=== PATIENT | male | born 1935 | race Caucasian/White ===

== ENCOUNTER → 2019-02-10 14:15 | Outpatient (CLI) | payer MEDICARE, SELFPAY ==
--- NOTE | 2019-02-10 14:15 | LES_PTH ---
PATIENT: DERRICK VIZCARRA LOC: [facility] U#:[id number] AGE/SX: 89/M ROOM: RE02/10/[address]: Dr. Hero Amaral MD : 1935 BED: DIS: SPEC #: [id number] RECD: 02/10/19 17:29 STATUS: LYDIA INESSA #: [id number] STEFANI: 02/10/19 14:[address]: Hero Amaral DEPT: SURGICAL PATHOLOGY RECD BY: Eduin Molina Tissues: Tongue, NOS Procedures: PAS Fungus (control) Special Stain Group I Surgery Specimen Level IV HEADER OPERATION: Right tongue lesion biopsy PRE-OP DIAGNOSIS: Lesion of tongue TISSUE SUBMITTED: Right tongue lesion MICROSCOPIC DIAGNOSIS Right tongue lesion, biopsy: A piece of squamous mucosa with focal ulceration, acute inflammation and granulation tissue reaction. Special stain for fungi is negative for organisms; matched control is appropriate. Negative for malignancy. See comment. SJ:ranjit 02/12/19 COMMENT Correlation with clinical findings and appropriate follow up are necessary. Case has been reviewed in consultation with Dr. Condon who concurs with the above diagnosis. IDC:AM MICROSCOPIC DESCRIPTION Slides are reviewed. GROSS DESCRIPTION Received in fixative is one container labeled with the patient's name and designated right tongue lesion. The specimen consists of a piece of wadsworth mucosal tissue measuring 0.5 x 0.4 x 0.3 cm. The specimen is totally submitted in one cassette. / CATHERINE:ranjit 02/11/19 TC:2 CPT: 17591, 67786
== END ==
PROVIDERS: Family Provider Otolaryngology; PCP Otolaryngology; Visit Provider Otolaryngology
DX: K13.70 Unspecified lesions of oral mucosa (principal)
CPT/HCPCS: 88305; 88312

== ENCOUNTER 2019-03-07 14:06 | Inpatient (IN) | payer MEDICARE, SELFPAY ==
[2019-03-07] VITALS (16 sets, daily range): BP systolic 104–155; BP diastolic 50–89; PULSE 62–91; RESP 16–18; TEMP 36.4–37.3; O2SAT 92–100; BMI 39.2
--- NOTE | 2019-03-07 | LES_PTH ---
PATIENT: DERRICK VIZCARRA LOC: [facility] U#:[id number] AGE/SX: 83/M ROOM: OR313 RE03/07/[address]: Dr. Hreo Amaral MD : 1935 BED: 1 DIS: 03/09/2019 SPEC #: [id number] RECD: 03/07/19 09:23 STATUS: LYDIA REQ #: [id number] STEFANI: 03/07/19 00:[address]: Hero Amaral DEPT: SURGICAL PATHOLOGY RECD BY: Claudette Noe ENTERED: 03/07/19 10:30 SP TYPE: Lesion OTHR DR: Dr. Jayden Villanueva MD Tissues: A - Tongue, NOS B - Neck, NOS Procedures: Frozen Section (charge) Surgery Specimen Level IV Surgery Specimen Level V HEADER OPERATION: Radical neck excision right lateral tongue lesion PRE-OP DIAGNOSIS: Lesion of tongue, cervical lymphadenopathy TISSUE SUBMITTED: A - Right lateral tongue lesion, double stitch - anterior, single suture - superior, sent for FS at 0916, B - Right supraomohyoid neck dissection tissue FROZEN SECTION DIAGNOSIS A. Right lateral tongue lesion, excisional biopsy: Invasive squamous cell carcinoma, completely excised in the sections examined. SJ:ranjit 03/07/19 Case has been reviewed in consultation with Dr. Condon who concurs with the above diagnosis. IDC:AM MICROSCOPIC DIAGNOSIS A. Right lateral tongue lesion, excisional biopsy: Invasive moderately differentiated squamous cell carcinoma. See cancer checklist below. B. Right supraomohyoid neck dissection including submandibular gland, excision: Salivary gland tissue with mild chronic inflammation. Three out of six lymph nodes positive for metastatic squamous cell carcinoma. AM:ranjit 03/11/19 COMMENT LIP AND ORAL CAVITY CANCER CHECKLIST Procedure: Excision of tongue lesion Tumor site: Right lateral tongue Tumor laterality: Right Tumor focality: Unifocal Greatest dimension: 2 cm Additional dimensions: 1.7 cm Tumor depth of invasion: 7 mm Histologic type: Squamous cell carcinoma Histologic grade: G2 (moderately differentiated) Margins: Uninvolved by invasive carcinoma. Distance from closest inferior margin: 3 mm Tumor bed: Uninvolved by invasive carcinoma. Lymphvascular invasion: Not identified Perineural invasion: Focally present Regional lymph nodes: Number of lymph nodes involved: 3 Total number of lymph nodes examined: 6 See specimen B Laterality of lymph nodes involved: Ipsilateral Size of largest metastatic deposit: 0.7 cm Extranodal extension: Not identified PATHOLOGIC STAGE: pT2 N2b Mx The above summary is in compliance with [employer] [place] (CAP) Cancer Protocols Checklist and [place] [employer] Committee on Cancer (AJCC), Staging Manual, 8th Ed. Immunohistochemistry ([id number]) supports the above diagnosis. Case has been reviewed in consultation with Dr. Nichols who concurs with the above diagnosis. IDC:SJ MICROSCOPIC DESCRIPTION Slides are reviewed. GROSS DESCRIPTION A - Received fresh for frozen section diagnosis labeled with the patient's name is a specimen designated right lateral tongue lesion. The specimen consists of a piece of mucosal tissue with underlying skeletal muscle tissue (portion of tongue) measuring 5 x 3 cm and up to 1.5 cm in thickness. The specimen is oriented as follows: double stitch - anterior, single suture - superior. The specimen is inked as follows: superior - blue, inferior - green, anterior tip - yellow, posterior tip - black and deep margin - red. The surface shows extensive area of ulceration measuring 2 x 1.5 cm. The entire specimen is submitted as follows: 1-5 - frozen section (1 - anterior and posterior tips, 2 & 3 - tumor with closest superior and inferior margins, 4 & 5 - tumor with closest inferior margin), 6-11 - rest of the specimen. / CATHERINE:ranjit 03/07/19 B - Received in fixative is one container labeled with the patient's name and designated right supraomohyoid neck dissection tissue. The specimen consists of a piece of wadsworth-pink soft tissue unoriented and measuring 11.5 x 7 x 2 cm. The specimen is not oriented. Two sutures are noted without identification. More dictation will follow later. / SJ:ranjit 03/07/19 The specimen consists of a piece of wadsworth-pink soft tissue measuring 12 x 8 x 2 cm. The specimen is not oriented. Two sutures are noted at one edge of specimen. A nodular piece of tissue consistent with salivary gland tissue measures 3 x 1.5 x 2 cm. Multiple lymph nodes are identified measuring 0.5 to 1 cm in greatest dimension. [employer] sections are submitted in nine cassettes as follows: 1-4 - entire salivary gland tissue, 5 & 6 - each cassette containing multiple lymph nodes, 7-9 - possible lymph nodes. The specimen is fixed in lymph node revealing solution for a second look. / SJ:ranjit 03/07/19 TC:0 CPT: 39245, 45105, 00561
--- NOTE | 2019-03-07 | IMM_PTH ---
PATIENT: DERRICK VIZCARRA LOC: [facility] U#:[id number] AGE/SX: 83/M ROOM: MS313 RE03/07/[address]: Dr. Hero Amaral MD : 1935 BED: 1 DIS: 03/09/2019 SPEC #: [id number] RECD: 03/10/19 12:37 STATUS: SOUT REQ #: [id number] STEFANI: 03/07/19 00:[address]: Hero Amaral DEPT: IMMUNOHISTOCHEMISTRY RECD BY: Claudette Noe ENTERED: 03/10/19 12:38 SP TYPE: IMMUNO OTHR DR: Dr. Jayden Villanueva MD Tissues: A - Tongue, NOS Procedures: CD31 (initial) CK14 (add) CK5-6 (add) KI-67 (add) P16 (add) P53 (add) FACTOR VIII (add) P40 (add) PHYSICIAN & INSTITUTION [place] [id number] SPECIMEN INFORMATION: Tissue Source: A - Right lateral tongue lesion Clinical Info: Tongue lesion; cervical lymphadenopathy Specimen Number: [id number] A2 CPT code: 71112, 64271 x8 METHODOLOGY: Deparaffinized sections of prefer/formalin-fixed tissue or PAP/DQ stained slides are incubated with monoclonal/polyclonal antibodies/oligonucleotide probes. Localization is made via biotin free immunoperoxidase method. Appropriate controls are performed and reacted as expected. Results on target cell population are indicated in the following table: RESULTS: ANTIBODY / CLONE RESULT Block A2 CD31 (JAYCE/70A) negative Factor VIII (R Ag) negative S-100 (4C4.9) negative CK5-6 (D5 & 1684) positive CK14 (LL002) positive P40 (BC28) positive P16 (E6H4) negative P53 (DO-7) positive Ki-67 (30-9) positive, moderate These tests were developed and their performance characteristics determined by [facility]. They may not have been cleared or approved by the U.S. Food and Drug Administration. The FDA has determined that such clearance or approval is not necessary. The above immunohistochemical/dualISH markers are ordered and reviewed by the Pathologist. INTERPRETATION: A. Right lateral tongue lesion, excisional biopsy: Invasive squamous cell carcinoma. Focal perineural invasion by carcinoma. No evidence of vascular invasion. AM:ranjit 03/11/19
--- NOTE | 2019-03-07 06:38 | EKG12_ITS ---
Test Reason : PRE-OP Blood Pressure : / mmHG Vent. Rate : 063 BPM Atrial Rate : 063 BPM P-R Int : 170 ms QRS Dur : 140 ms QT Int : 434 ms P-R-T Axes : 046 -06 153 degrees QTc Int : 444 ms Normal sinus rhythm Left bundle branch block Abnormal ECG Confirmed by JEFFERSON WATTS, JAH ([id number]), video news editor KARSON JOSEPH ([id number]) on 03/10/2019 10:39:04 AM Referred By: Hero Amaral Confirmed By:JAH PAULINO MD
[2019-03-07 07:05] LABS: Bedside Glucose 122 mg/dL (70-110)
[2019-03-07 07:09] LABS: Hematocrit 51.3 % (40-54); Hemoglobin 16.7 g/dL (13.0-16.5); Mean Corp Hgb Conc 32.6 g/dL (32-36); Mean Corpuscular Hgb 30.9 pg (27.0-32.0); Mean Corpuscular Volume 94.8 fL (80-94); Platelet Count 255 K/mm3 (150-450); RBC Distribution Width CV 13.2 % (11.6-14.6); RBC Distribution Width SD 46.1 fl (35.1-43.9); Red Blood Count 5.41 M/mm3 (4.6-6.2); White Blood Count 7.2 K/mm3 (4.4-11.0)
[2019-03-07] MEDS: Lactated Ringers 1,000 ML 100 ML IV ×2 (07:24→17:34)
[2019-03-07 07:32] LABS: Anion Gap 6 (5-15); BUN 16 mg/dL (7-18); Calcium,Total 9.6 mg/dL (8.5-10.1); Chloride 107 mmol/L (98-107); EST Glomerular Filtration Rate 76 mL/min (>60); Est Glom Filt Rate - Afr Amer 92 mL/min (>60); Estimated Creatinine Clearance 46.87 ml/min; Glucose 118 mg/dL (74-106); Hemoglobin A1c 6.5 % (4.2-6.3); Potassium 4.1 mmol/L (3.5-5.1); Sodium Level 141 mmol/L (136-145)
[2019-03-07] MEDS: Bacitracin 500 UNITS/GM PACKET (12:39)
--- NOTE | 2019-03-07 12:55 | OP.PCM_ITS ---
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 Office biopsy suggested a benign etiology however the appearance was highly suspicious and preoperative CT scan showed some questionable adenopathy of the right neck and the above procedure for definitive evaluation and treatment was advised and the family and patient were eager to proceed. The risks, alternatives, potential complications, and benefits were discussed at length and any questions answered to the patient and/or caregiver's satisfaction. Witnessed informed consent was obtained in the office, and the patient and/or caregiver was agreeable to proceed. Procedure went as follows: The patient was identified in the preoperative holding and brought to the operating room where he was placed under general anesthesia and intubated. When appropriate anesthesia obtained a lip retractor and dental guard was placed into the mouth to allow for visualization of the tongue. Arising from the right lateral aspect was a 3 x 4 cm firm fungating lesion with a rolled border sparing the anterior tip. This was then injected with 1% lidocaine with 1-100,000 epinephrine and after allowing for vasoconstriction using monopolar cautery the lesion was then excised with a cuff of surrounding normal tissue extending into the deep musculature of the tongue. Arterial supplies were individually clamped and ligated with 3-0 silk sutures. The lesion was then split sent for pathologic evaluation which revealed an inv asive squamous cell carcinoma with negative resection margins. Given confirmation of malignancy a right selective supraomohyoid neck dissection was then elected as had been discussed preoperatively. Fresh draping and preparation of the neck was then performed and the planned skin incision marked 3 fingerbreadths below the angle of the mandible and extending 1 cm across the midline. This was then injected with 1% lidocaine with 1-100,000 epinephrine for a total of 7 mL. After allowing for vasoconstriction, a 15 blade scalpel was then used to incise the skin subcutaneous tissue and platysma. Using monopolar cautery subplatysmal flaps were then elevated superiorly to the angle of the mandible and inferiorly to the clavicle. Dissection was then carried out where the marginal mandibular nerve was identified and preserved and draped superiorly. Dissection was then carried out along the lateral aspect of the sternocleidomastoid and then the overlying fascia dissected from the overlying muscle. The vascular sheath was then identified and removed from the jugular and carotid. The side branches of the jugular vein were then individually clamped and ligated with 3-0 silk sutures. Working superiorly and enlarged jugulodigastric lymph node was identified and included in the resection specimen. The submandibular gland was then incised along its surrounding fascia and drawn inferiorly after transecting the facial vein. The facial artery side branches were individually clamped and ligated with 3-0 silk sutures and this was then preserved and left in situ. Dissection was then carried out along the midline under the mylohyoid and along the anterior belly of the digastric. The submandibular duct was then transected and the nervous attachments of the glossopharyngeal nerve and ganglion were then freed from their attachments and the vascular components ligated with sutures. This allowed the dissection to then be developed inferiorly to the omohyoid and medially over the larynx and thyroid. Dissection was then carried out across the midline to include the submental fatty lymph node packet which was then resected in continuity with the main specimen. This was then sent for pathologic evaluation. The wound was then copiously irrigated with saline solution and a #7 flat drain placed and brought out through a separate stab incision. This was then secured with a 3-0 silk suture. The platysma was then reapproximated with interrupted 3-0 Vicryl sutures as were the subcutaneous tissues. Finally a running 5-0 Monocryl suture was then placed to close the skin. Bacitracin ointment was then applied. Type of Anesthesia:: General Anesthesiologist: Freeman Bonilla Special Medications: none Specimen's removed: right tongue lesion, right neck dissection levels 6, 3 and 4 Drains: #7 flat HU Estimated Blood Loss (mL): 10 mL Fluids Replaced: 1800 mL Grafts/Implants Used: none - Complications none - Admit VTE Documentation VTE Present on Admission: No VTE Mechan Device Prophylaxis: SCD's VTE Pharm Prophylaxis ordered?: No
--- NOTE | 2019-03-07 13:09 | DCINST_ITS ---
- Discharge Diagnoses Current Active Problems: Current Active and Chronic Problems Squamous cell carcinoma of lateral tongue (Chronic) You will use the following diet at home:: No restrictions Discharge Activity: Return to Normal Activity, May not drive while taking narcotic pain medications. May shower in (days): 2 Weight Bearing Status: Weight bearing as tolerated Call your doctor if your incision/area has: Sudden Increased Bleeding, Increased Pain/ Swelling, Increased Redness, Swelling at the incision site Call your doctor if you observe: Fever of 101 or Higher, Uncontrolled pain Allergies/Adverse Reactions: Allergies No Known Allergies Allergy (Verified 03/07/19 06:52) Medications to take at Discharge Aspirin [Aspir 81] 81 mg PO DAILY 03/04/19 Atorvastatin Calcium [Lipitor] 20 mg PO QHS 03/04/19 Glimepiride [Amaryl] 1 mg PO DAILY 03/04/19 Levothyroxine [Synthroid] 50 mcg PO DAILY 03/04/19 Lisinopril [Zestril] 20 mg PO DAILY 03/04/19 Metoprolol(XL)Succ [Toprol Xl (Beta Jeffy)] 50 mg PO BID 03/04/19 Multivitamin with Minerals [Multiple Vitamin] 1 ea PO DAILY 03/04/19 Omeprazole Magnesium [Prilosec Otc] 20 mg PO PRN PRN 03/04/19 Primary Care Physician: Jayden Villanueva MD [Primary Care Provider] - Test Results: Test results from this visit will be discussed in further detail at your follow- up appointment, if applicable. Please Follow Up With: Hero Amaral MD When: 2 weeks
[2019-03-07 13:51] LABS: Bedside Glucose 117 mg/dL (70-110)
[2019-03-07 17:45] LABS: Bedside Glucose 94 mg/dL (70-110)
[2019-03-07 22:25] LABS: Bedside Glucose 116 mg/dL (70-110)
[2019-03-07] MEDS: Metoprolol(XL)Succ 50 MG Tablet PO (22:26)
[2019-03-07] MEDS: Atorvastatin Calcium 20 MG Tablet PO (22:26)
[2019-03-08] VITALS (14 sets, daily range): BP systolic 112–145; BP diastolic 57–81; PULSE 72–97; RESP 16–18; TEMP 36.4–37.4; O2SAT 91–97
[2019-03-08] MEDS: Levothyroxine 50 MCG Tablet PO (03:52)
[2019-03-08 06:50] LABS: Bedside Glucose 121 mg/dL (70-110)
[2019-03-08] MEDS: Glimepiride 1 MG Tablet PO (08:00)
[2019-03-08] MEDS: Aspirin E.C. 81 MG Tablet PO (08:00)
--- NOTE | 2019-03-08 08:59 | PN.SURG_ITS ---
Subjective: The patient reports he is feeling well with his incisional site pain at the tongue controlled with the Tylenol with codeine liquid. He denies any chest pain, cough, constipation, abdominal discomfort, or leg pain or swelling. He reports that he has been out of bed and walking and has continued to improve overnight. Objective: Patient appears well at the bedside. The tongue incision is intact without bleeding or significant swelling or edema of the tongue. The neck incision site is nicely closed without fluid collection or erythema. Drain output was 40 mL last shift and there is about 20 mL in the bulb currently. He is at 1 L of oxygen nasal cannula at 93% oxygen saturation. - Physical Exam Vitals/I&O's: Vital Signs Temp Pulse Resp BP Pulse Ox 98.8 F 81 16 112/62 95 03/08/19 07:32 03/08/19 07:32 03/08/19 07:32 03/08/19 07:32 03/08/19 07:32 Oxygen Flow Rate (L/min) 2 Oxygen Delivery Method Room Air Weight: 103.5 kg Body Mass Index (BMI) 39.2 Finger Stick Blood Glucose 117 Intake and Output for Last 24 Hours 03/06/19 03/07/19 03/08/19 23:59 23:59 23:59 Intake Total 1000 / 1250 1350 / 1350 Output Total 600 / 630 70 / 70 Balance 400 / 620 1280 / 1280 General: Alert, Oriented x3, Cooperative, No apparent distress HEENT: Atraumatic, PERRLA Oral: Moist Mucosa Neck: Supple Lungs: No rhonchi, No wheeze Cardiovascular: Regular rate, Regular Rhythm Abdomen: Soft, Non Tender, Obese Extremities: No cyanosis, No edema Skin: No rashes Psych/Mental Status: Alert and oriented to time, place, person, mood and affect Laboratory Results 03/07/19 13:44: POC Glucose 117 H 03/07/19 17:30: POC Glucose 94 03/07/19 22:10: POC Glucose 116 H 03/08/19 06:35: POC Glucose 121 H Current Medications Acetaminophen (Tylenol) 500 mg PO Q4H PRN PRN PRN Reason: Pain Score 1-5/10 Acetaminophen/Codeine Phosphate (Tylenol W/Cod Liq 300-30mg/12.5ml) 15 ml PO Q4H PRN PRN PRN Reason: Pain Score 6-10/10 Last Admin: 03/08/19 07:49 Dose: 15 ml Documented by: Aspirin (Ecotrin) 81 mg PO DAILY@0800 [facility] Last Admin: 03/08/19 08:00 Dose: 81 mg Documented by: Atorvastatin Calcium (Lipitor) 20 mg PO QHS [facility] Last Admin: 03/07/19 22:26 Dose: 20 mg Documented by: Glimepiride (Amaryl) 1 mg PO DAILY@0800 [facility] Last Admin: 03/08/19 08:00 Dose: 1 mg Documented by: Lactated Ringer's () 1,000 mls @ 100 mls/hr IV .Q10H [facility] Last Admin: 03/08/19 03:53 Dose: Not Given Documented by: Sodium Chloride () 250 mls @ 15 mls/hr IV .[id number] PRN PRN Reason: Saline Flush Sodium Chloride () 250 mls @ 15 mls/hr IV .[id number] PRN PRN Reason: Additional IVPB Infusion Levothyroxine Sodium (Synthroid) 50 mcg PO DAILY@0600 [facility] Last Admin: 03/08/19 03:52 Dose: 50 mcg Documented by: Lisinopril (Zestril) 20 mg PO DAILY [facility] Metoprolol Succinate (Toprol Xl (Beta Jeffy)) 50 mg PO BID [facility] Last Admin: 03/07/19 22:26 Dose: 50 mg Documented by: Multivitamins/Minerals (Multivitamin With Minerals) 1 tablet PO DAILY@1200 [facility] Ondansetron HCl (Zofran) 4 mg IV Q4H PRN PRN PRN Reason: Nausea Pantoprazole Sodium (Protonix) 20 mg PO DAILY PRN PRN PRN Reason: indigestion Sodium Chloride () 10 - 40 ml IV UD PRN PRN Reason: SALINE FLUSH Medical Necessity - Tobacco Use Smoking Status: Former smoker Tobacco Use: Non-smoker Assessment/Plan The patient is doing well postoperative day #1 status post resection of squamous cell carcinoma of the right lateral tongue and right supraomohyoid neck dissection. He is required some oxygen supplementation overnight and institution of incentive spirometry for improved ventilation is instituted. He otherwise has satisfactory pain control and no evidence of infection or excess bleeding at the wound sites. His drain continues with some elevated output and given his oxygen requirement I have advised that he stay for continued monitoring for ongoing improvement and he is agreeable. I am hopeful that with improved oxygenation and ongoing decrease in his drain output that discharge may be possible for tomorrow as otherwise his vital signs are very good and he appears to have gone through his surgical encounter without significant incident.
[2019-03-08] MEDS: Lisinopril 20 MG Tablet PO (09:59)
[2019-03-08] MEDS: Metoprolol(XL)Succ 50 MG Tablet PO ×2 (09:59→23:29)
[2019-03-08] MEDS: Multivitamins,Ther W-Minerals Tablet 1 TABLET PO (12:53)
[2019-03-08] MEDS: Atorvastatin Calcium 20 MG Tablet PO (23:29)
[2019-03-08 23:51] LABS: Bedside Glucose 94 mg/dL (70-110)
[2019-03-09 02:00] VITALS: BP 142/77; PULSE 75; PULSE 85; RESP 18; TEMP 37.3; O2SAT 94
[2019-03-09] MEDS: Levothyroxine 50 MCG Tablet PO (05:03)
[2019-03-09 06:04] VITALS: PULSE 75
[2019-03-09 07:10] LABS: Bedside Glucose 104 mg/dL (70-110)
[2019-03-09 07:24] VITALS: BP 120/55; PULSE 70; RESP 16; TEMP 36.6; O2SAT 95
[2019-03-09] MEDS: Aspirin E.C. 81 MG Tablet PO (07:44)
[2019-03-09] MEDS: Glimepiride 1 MG Tablet PO (07:44)
[2019-03-09 08:00] VITALS: PULSE 71
[2019-03-09 08:16] VITALS: O2SAT 95
--- NOTE | 2019-03-09 09:35 | PN.SURG_ITS ---
Subjective: Patient reports he is done well overnight with decreasing pain now at a level 3. He denies any pain, swelling, or other changes at his incisional sites. He reports that he is feeling well and wishes to go home. Objective: Patient appears well in his bed. Tongue incision is intact without swelling or edema. Neck incision site is clean dry and intact without swelling or erythema. His drain put out 100 mL of serous material yesterday and continues to have 20 mL of serous material this morning. Pulse oximetry is at 92% on room air although he did have 1 L of oxygen overnight. He denies shortness of breath, wheezing, chest pain, abdominal pain, or leg pains. - Physical Exam Vitals/I&O's: Vital Signs Temp Pulse Resp BP Pulse Ox 97.8 F 70 16 120/55 L 95 03/09/19 07:24 03/09/19 07:24 03/09/19 07:24 03/09/19 07:24 03/09/19 07:24 Oxygen Flow Rate (L/min) 1 Oxygen Delivery Method Nasal Cannula Weight: 103.5 kg Body Mass Index (BMI) 39.2 Finger Stick Blood Glucose 117 Intake and Output for Last 24 Hours 03/07/19 03/08/19 03/09/19 23:59 23:59 23:59 Intake Total 1000 / 1250 1550 / 1550 100 / 100 Output Total 600 / 630 120 / 120 100 / 100 Balance 400 / 620 1430 / 1430 0 / 0 General: Alert, Oriented x3, Cooperative, No apparent distress HEENT: Atraumatic, PERRLA, EOMI Oral: Moist Mucosa Neck: Supple Lungs: No rhonchi, No wheeze Cardiovascular: Regular rate, Regular Rhythm Abdomen: Soft, Non Tender, Obese Extremities: No cyanosis, No edema Skin: No rashes Psych/Mental Status: Alert and oriented to time, place, person, mood and affect Laboratory Results 03/08/19 23:40: POC Glucose 94 03/09/19 06:50: POC Glucose 104 Current Medications Acetaminophen (Tylenol) 500 mg PO Q4H PRN PRN PRN Reason: Pain Score 1-5/10 Acetaminophen/Codeine Phosphate (Tylenol W/Cod Liq 300-30mg/12.5ml) 15 ml PO Q4H PRN PRN PRN Reason: Pain Score 6-10/10 Last Admin: 03/08/19 19:38 Dose: 15 ml Documented by: Aspirin (Ecotrin) 81 mg PO DAILY@0800 [facility] Last Admin: 03/09/19 07:44 Dose: 81 mg Documented by: Atorvastatin Calcium (Lipitor) 20 mg PO QHS [facility] Last Admin: 03/08/19 23:29 Dose: 20 mg Documented by: Glimepiride (Amaryl) 1 mg PO DAILY@0800 [facility] Last Admin: 03/09/19 07:44 Dose: 1 mg Documented by: Sodium Chloride () 250 mls @ 15 mls/hr IV .[id number] PRN PRN Reason: Saline Flush Sodium Chloride () 250 mls @ 15 mls/hr IV .[id number] PRN PRN Reason: Additional IVPB Infusion Levothyroxine Sodium (Synthroid) 50 mcg PO DAILY@0600 [facility] Last Admin: 03/09/19 05:03 Dose: 50 mcg Documented by: Lisinopril (Zestril) 20 mg PO DAILY [facility] Last Admin: 03/08/19 09:59 Dose: 20 mg Documented by: Metoprolol Succinate (Toprol Xl (Beta Jeffy)) 50 mg PO BID [facility] Last Admin: 03/08/19 23:29 Dose: 50 mg Documented by: Multivitamins/Minerals (Multivitamin With Minerals) 1 tablet PO DAILY@1200 [facility] Last Admin: 03/08/19 12:53 Dose: 1 tablet Documented by: Ondansetron HCl (Zofran) 4 mg IV Q4H PRN PRN PRN Reason: Nausea Pantoprazole Sodium (Protonix) 20 mg PO DAILY PRN PRN PRN Reason: indigestion Sodium Chloride () 10 - 40 ml IV UD PRN PRN Reason: SALINE FLUSH Medical Necessity - Tobacco Use Smoking Status: Former smoker Tobacco Use: Non-smoker Assessment/Plan Patient is doing well postop day #2 status post resection of squamous cell carcinoma of the right tongue and right supraomohyoid neck dissection. He has had no cardiovascular events over his admission and is otherwise tolerating room air with oxygenation at 92%. 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 I do feel that he is appropriate for discharge home today with follow-up on Sunday for drain removal. I discussed with him signs of infection, care of the wound site, and drain care. We will plan for discharge today.
== END 2019-03-09 10:55 | disposition home or self-care (01) | DRG 129 ==
LOC: SDC 14:22 → MS3 14:22
PROVIDERS: Anesthesiology; Admitting Provider Otolaryngology; Family Provider Family Medicine; PCP Family Medicine; Referring Provider Otolaryngology; Visit Provider Otolaryngology
PROC: 07T10ZZ Resection of Right Neck Lymphatic, Open Approach (ICD-10-PCS; CPT 38724; principal; 2019-03-07 07:50)
DX: C02.1 Malignant neoplasm of border of tongue (principal); C77.0 Secondary and unspecified malignant neoplasm of lymph nodes of head, face and neck; I25.10 Atherosclerotic heart disease of native coronary artery without angina pectoris; I10 Essential (primary) hypertension; E78.5 Hyperlipidemia, unspecified; E03.9 Hypothyroidism, unspecified; G47.30 Sleep apnea, unspecified; Z79.899 Other long term (current) drug therapy; Z87.891 Personal history of nicotine dependence; Z95.1 Presence of aortocoronary bypass graft
CPT/HCPCS: 36415; 80048; 82962; 83036; 84443; 85027; 88305; 88307; 88331; 88341; 88342; 93005; 94762; 99251; J7120; G0463; J2405

== ENCOUNTER → 2020-12-13 07:58 | Outpatient (CLI) | payer MEDICARE, SELFPAY ==
--- NOTE | 2020-12-13 | LES_PTH ---
PATIENT: DERRICK VIZCARRA LOC: [facility] U#:[id number] AGE/SX: 89/M ROOM: RE12/13/[address]: Dr. Hero Amaral MD : [id number] BED: DIS: SPEC #: [id number] RECD: 12/13/20 17:56 STATUS: LYDIA WYLIE #: [id number] STEFANI: 12/13/20 00:[address]: Hero Amaral DEPT: SURGICAL PATHOLOGY RECD BY: Hilario Garza ENTERED: 12/14/20 08:40 SP TYPE: Lesion OTHR DR: Dr. Jayden Villanueva MD Tissues: Mouth, NOS Procedures: Special Stain Group I Surgery Specimen Level IV AFB Stain (control) GMS Stain (control) HEADER OPERATION: Biopsy floor of mouth right side PRE-OP DIAGNOSIS: History of SCCA tongue TISSUE SUBMITTED: Right floor of mouth MICROSCOPIC DIAGNOSIS Right floor of mouth, biopsy: Benign mucosal polyp with associated acute inflammation and reactive epithelial changes. No evidence of malignancy. Negative for acid-fast bacilli and fungal organisms. See comment. AM:ranjit 12/15/2020 COMMENT AFB and GMS stains with matched controls were used in the evaluation of this case. MICROSCOPIC DESCRIPTION Slides are reviewed. GROSS DESCRIPTION Received in fixative is one container labeled with the patient's name and designated lesion right floor of mouth. The specimen consists of a piece of wadsworth-brown soft tissue measuring 0.2 x 0.2 x 0.1 cm. The entire specimen is submitted in one cassette. / SJ:ranjit 12/14/20 TC:2 CPT: 15628, 35333 x2
== END ==
PROVIDERS: PCP Family Medicine; Referring Provider Otolaryngology; Visit Provider Otolaryngology
DX: Z85.810 Personal history of malignant neoplasm of tongue (principal)
CPT/HCPCS: 88305; 88312